=== PATIENT | female | born 1985 | race Caucasian/White ===

== ENCOUNTER 2016-11-08 10:49 | Emergency (ER) | payer OTHER ==
[~2016-11-08 10:49] MED LIST: Z.0.NO CURRENT MEDS
[2016-11-08 10:51] VITALS: BP 110/59; PULSE 94; RESP 20; TEMP 98.5; O2SAT 98
--- NOTE | 2016-11-08 11:04 | PD ---
Physical Exam Time Seen by Provider: 11:01 Narrative This is a 31 y/o female who was sent here by Wil Galvan to "confirm viability." She reports that her last menstrual period was 14 years ago but she believes that she is approximately 4 weeks . Vital signs reviewed. Seen at triage desk. Awaiting bed placement. Data Data Last Documented VS Vital Signs Date Time Temp Pulse Resp B/P Pulse Ox O2 Delivery O2 Flow Rate FiO2 11/08/16 10:51 98.5 94 20 110/59 98 Room Air [facility] Medical Record Reviewed: Yes Supervised Visit with AYESHA: Jarad Winn Nov 08, 2016 11:04
--- NOTE | 2016-11-08 11:13 | PD ---
HPI Chief Complaint: Medical Clearance Time Seen by Provider: 11:12 Travel History International Travel<30 days: No Contact w/Intl Traveler<30days: No Traveled to known affect area: No History of Present Illness HPI 31-year-old female presents to the emergency department sent by Theodore Galvan for " viability". Patient apparently had a positive test done at [facility]. Upon exam, she declines any symptoms. No chest pain or shortness breath. No abdominal pain or pelvic pain. No nausea, vomiting, diarrhea. She states that her last menstrual cycle was many years ago and does not know how far along she is. She states she has never been before. She states that she has had abnormal vaginal discharge that she was 14 years old. Patient is uncooperative and does not want to answer my questions. PFSH Past Medical History Diminished Hearing: No Psychiatric: No Schizophrenia: Yes Tetanus Vaccination: Unknown ?: LMP: stated" I didnot have periods for years" Menopausal: No : 0 Para: 0 Miscarriage: 0 : 0 Ectopic : No Ovarian Cysts: No Dilation and Curettage (D&C): No Tubal Ligation: Yes (REPORTS "LAP SURGERY" SO CAN'T GET ) Past Surgical History Gynecologic Surgery: Yes (leap surgery ) Hysterectomy: No Social History Alcohol Use: No Tobacco Use: Yes (a pack a day ) Substance Use: Yes (cocaine, weed) Allergies-Medications (Allergen,Severity, Reaction): Coded Allergies: No Known Allergies (Verified , 11/08/16) Reported Meds & Prescriptions Reported Meds & Active Scripts Active No Active Prescriptions or Reported Medications Review of Systems Except as stated in HPI: all other systems reviewed are Neg Physical Exam Narrative GENERAL: Well-nourished, well-developed female patient, afebrile. SKIN: Focused skin assessment warm/dry. HEAD: Normocephalic. EYES: No scleral icterus. No injection or drainage. NECK: Supple, trachea midline. No JVD or lymphadenopathy. CARDIOVASCULAR: Regular rate and rhythm without murmurs, gallops, or rubs. RESPIRATORY: Breath sounds equal bilaterally. No accessory muscle use. Lungs sounds are clear to auscultation. GASTROINTESTINAL: Abdomen soft and nondistended. Patient moans when I palpate the pelvic region. MUSCULOSKELETAL: No cyanosis, or edema. BACK: Nontender without obvious deformity. No CVA tenderness. Data Data Last Documented VS Vital Signs Date Time Temp Pulse Resp B/P Pulse Ox O2 Delivery O2 Flow Rate FiO2 11/08/16 11:07 20 11/08/16 10:51 98.5 94 110/59 98 Room Air Orders Ed Urine Pregnancytest Poc (11/08/16 11:06) Beta Hcg (Quant/Titer) (11/08/16 11:11) Complete Blood Count With Diff (11/08/16 11:11) Complete Rh (11/08/16 11:11) Urinalysis - C+S If Indicated (11/08/16 11:11) Comprehensive Metabolic Panel (11/08/16 11:11) Ed Poc Ultrasound (11/08/16 ) Gc And Chlamydia Pcr (11/08/16 12:02) Mandatory Outpatient Referral (11/08/16 12:35) Urine Culture (11/08/16 12:00) Labs Laboratory Tests Test 11/08/16 11/08/16 11:25 12:00 White Blood Count 6.5 TH/MM3 Red Blood Count 3.26 MIL/MM3 Hemoglobin 10.1 GM/DL Hematocrit 29.4 % Mean Corpuscular Volume 90.1 FL Mean Corpuscular Hemoglobin 31.0 PG Mean Corpuscular Hemoglobin 34.4 % Concent Red Cell Distribution Width 13.8 % Platelet Count 180 TH/MM3 Mean Platelet Volume 7.4 FL Neutrophils (%) (Auto) 80.1 % Lymphocytes (%) (Auto) 11.4 % Monocytes (%) (Auto) 7.1 % Eosinophils (%) (Auto) 1.2 % Basophils (%) (Auto) 0.2 % Neutrophils # (Auto) 5.2 TH/MM3 Lymphocytes # (Auto) 0.7 TH/MM3 Monocytes # (Auto) 0.5 TH/MM3 Eosinophils # (Auto) 0.1 TH/MM3 Basophils # (Auto) 0.0 TH/MM3 CBC Comment DIFF FINAL Differential Comment Sodium Level 137 MEQ/L Potassium Level 3.6 MEQ/L Chloride Level 107 MEQ/L Carbon Dioxide Level 22.7 MEQ/L Anion Gap 7 MEQ/L Blood Urea Nitrogen 9 MG/DL Creatinine 0.55 MG/DL Estimat Glomerular Filtration 131 ML/MIN Rate Random Glucose 75 MG/DL Calcium Level 8.4 MG/DL Total Bilirubin 0.4 MG/DL Aspartate Amino Transf 19 U/L (AST/SGOT) Alanine Aminotransferase 21 U/L (ALT/SGPT) Alkaline Phosphatase 62 U/L Total Protein 6.1 GM/DL Albumin 2.5 GM/DL Human Chorionic Gonadotropin, 42454 MIU/ML Quant Blood Type A POSITIVE Rho(D) Type POSITIVE Urine Color YELLOW Urine Turbidity HAZY Urine pH 6.5 Urine Specific [place] 1.017 Urine Protein TRACE mg/dL Urine Glucose (UA) NEG mg/dL Urine Ketones NEG mg/dL Urine Occult Blood NEG Urine Nitrite POS Urine Bilirubin NEG Urine Urobilinogen LESS THAN 2.0 MG/DL Urine Leukocyte Esterase LARGE Urine RBC LESS THAN 1 /hpf Urine WBC 23 /hpf Urine Squamous Epithelial 3 /hpf Cells Urine Amorphous Sediment FEW Urine Bacteria MANY /hpf Urine Mucus FEW /lpf Microscopic Urinalysis Comment CULTURE INDICATED MDM Medical Decision Making Medical Screen Exam Complete: Yes Emergency Medical Condition: Yes Medical Record Reviewed: Yes Differential Diagnosis Intrauterine versus ectopic versus UTI versus cervicitis Narrative Course 31-year-old female presents to the emergency department for viability from [facility]. She declines any complaints on after, but is tender to the pelvic region upon palpation. UA, urine test, CBC, CMP, beta hCG , complete Rh are ordered and pending. ED POC ultrasound is ordered and pending. Patient declined pelvic exam. I strongly encouraged her to do pelvic exam to rule out any cervical infections, but she continues to decline. Chlamydia/gonorrhea are added to urine, but patient declines treatment for chlamydia/gonorrhea. UA shows large leukocyte esterase, 23 WBC, many bacteria. UPT is positive. CBC shows hemoglobin 10.1, hematocrit 29.4. CMP shows no acute abnormality. Beta HCG is 37,971. Blood type is A+. US was completed by my attending physician, Dr. Antoine, which showed fetus that measured approximately 17 weeks , 1 day with heart rate 141 bpm. Patient will be discharged prescription for Macrobid for UTI. She is encouraged to follow up with an information systems operator. Mandatory referral was placed. Patient will be discharged with a prescription for vitamins. She verbalizes agreement and understanding. Patient is returning to [facility] with [facility] employee that is at bedside. The patient was discharged in stable condition with instructions, including return instructions and follow up instructions. Diagnosis Primary Impression: Intrauterine Additional Impression: Urinary tract infection during Qualified Code: O23.42 - Urinary tract infection during , second trimester Referrals: Shipping Supervisor call for appointment Patient Instructions: General Instructions, (ED), Urinary Tract Infection in (ED) Additional Instructions: Ultrasound done today in the emergency department shows that you are approximately 17 weeks, 1 day with heart rate of 141 bpm. Take Macrobid as directed until gone. Take vitamins daily. Follow-up with an information systems operator. Return to the emergency department for any acute worsening of symptoms. Med/Other Pt SpecificInfo: Prescription(s) given Scripts Vit-Iron Carbonyl ( Plus Iron 29-1 mg)1 Tab Tab1 Tab PO DAILY #30 TAB Ref 0 Prov:Jacey Llanos 11/08/16 Nitrofurantoin Monohydrate Macrocrystals (Macrobid)100 Mg [id number] Mg PO BID 7 Days Ref 0 Prov:Jacey Llanos 11/08/16 Disposition: 65 DISC TO [facility] Condition: Stable Jacey Llanos Nov 08, 2016 11:13
[2016-11-08 11:57] LABS: AUTOMATED NEUTROPHIL # 5.2 TH/MM3 (1.8-7.7); BASOPHIL % 0.2 % (0.0-2.0); EOSINOPHIL # 0.1 TH/MM3 (0-0.4); EOSINOPHIL % 1.2 % (0.0-4.0); HEMATOCRIT 29.4 % (35.0-46.0); HEMO FLAGS DIFF FINAL; LYMPH % 11.4 % (9.0-44.0); LYMPHOCYTE # 0.7 TH/MM3 (1.0-4.8); MEAN CELL VOLUME 90.1 FL (80.0-100.0); MEAN CORPUSCULAR HGB CONC 34.4 % (32.0-36.0); MONO % 7.1 % (0.0-8.0); NEUT % 80.1 % (16.0-70.0); PLATELET COUNT 180 TH/MM3 (150-450); RED BLOOD COUNT 3.26 MIL/MM3 (4.00-5.30); RED CELL DISTRIBUTION WIDTH 13.8 % (11.6-17.2); WHITE BLOOD COUNT 6.5 TH/MM3 (4.0-11.0)
[2016-11-08 12:18] LABS: ANION GAP 7 MEQ/L (5-15); AST (GOT) 19 U/L (15-37); BICARBONATE 22.7 MEQ/L (21.0-32.0); BLOOD UREA NITROGEN 9 MG/DL (7-18); CHLORIDE 107 MEQ/L (98-107); GLOMERULAR FILTRATION RATE 131 ML/MIN (>89); POTASSIUM 3.6 MEQ/L (3.5-5.1); SODIUM (NA) 137 MEQ/L (136-145)
[2016-11-08 12:23] LABS: ALKALINE PHOSPHATASE 62 U/L (45-117); ALT (GPT) 21 U/L (10-53); TOTAL BILIRUBIN ADULT 0.4 MG/DL (0.2-1.0)
--- NOTE | 2016-11-08 12:36 | PD ---
Physical Exam Date Seen by Provider: Nov 08, 2016 Time Seen by Provider: 12:33 Narrative 31-year-old female came to the emergency room with history of pelvic pain. She was recently found out to be . A repeat urine test was done in the emergency room which was positive as well. Patient is seen by the nurse practitioner and I'm supervising her. Patient is in a drug rehabilitation place. She does not know how far she could be. Per her she hasn't had her period in past 13 years. The nurse practitioner requested me to do a bedside ultrasound for the . Please refer to my procedure note. Patient has refused a pelvic exam at this point. She will be discharged home eventually once the results of back on vitamin prescription. I have asked Jacey to give her a mandatory referral with the OB international coordinator. Patient does not have an OB currently. Data Data Last Documented VS Vital Signs Date Time Temp Pulse Resp B/P Pulse Ox O2 Delivery O2 Flow Rate FiO2 11/08/16 11:07 20 11/08/16 10:51 98.5 94 110/59 98 Room Air Orders Ed Urine Pregnancytest Poc (11/08/16 11:06) Beta Hcg (Quant/Titer) (11/08/16 11:11) Complete Blood Count With Diff (11/08/16 11:11) Complete Rh (11/08/16 11:11) Urinalysis - C+S If Indicated (11/08/16 11:11) Comprehensive Metabolic Panel (11/08/16 11:11) Ed Poc Ultrasound (11/08/16 ) Gc And Chlamydia Pcr (11/08/16 12:02) Mandatory Outpatient Referral (11/08/16 12:35) Urine Culture (11/08/16 12:00) Labs Laboratory Tests Test 11/08/16 11/08/16 11:25 12:00 Sodium Level 137 MEQ/L Potassium Level 3.6 MEQ/L Chloride Level 107 MEQ/L Carbon Dioxide Level 22.7 MEQ/L Anion Gap 7 MEQ/L Blood Urea Nitrogen 9 MG/DL Creatinine 0.55 MG/DL Estimat Glomerular Filtration 131 ML/MIN Rate Random Glucose 75 MG/DL Calcium Level 8.4 MG/DL Total Bilirubin 0.4 MG/DL Aspartate Amino Transf 19 U/L (AST/SGOT) Alanine Aminotransferase 21 U/L (ALT/SGPT) Alkaline Phosphatase 62 U/L Total Protein 6.1 GM/DL Albumin 2.5 GM/DL Human Chorionic Gonadotropin, [address] MIU/ML Quant Blood Type A POSITIVE Rho(D) Type POSITIVE White Blood Count 6.5 TH/MM3 Red Blood Count 3.26 MIL/MM3 Hemoglobin 10.1 GM/DL Hematocrit 29.4 % Mean Corpuscular Volume 90.1 FL Mean Corpuscular Hemoglobin 31.0 PG Mean Corpuscular Hemoglobin 34.4 % Concent Red Cell Distribution Width 13.8 % Platelet Count 180 TH/MM3 Mean Platelet Volume 7.4 FL Neutrophils (%) (Auto) 80.1 % Lymphocytes (%) (Auto) 11.4 % Monocytes (%) (Auto) 7.1 % Eosinophils (%) (Auto) 1.2 % Basophils (%) (Auto) 0.2 % Neutrophils # (Auto) 5.2 TH/MM3 Lymphocytes # (Auto) 0.7 TH/MM3 Monocytes # (Auto) 0.5 TH/MM3 Eosinophils # (Auto) 0.1 TH/MM3 Basophils # (Auto) 0.0 TH/MM3 CBC Comment DIFF FINAL Differential Comment Chlamydia trachomatis DNA NOT DETECTED (PCR) Neisseria gonorrhoeae DNA NOT DETECTED (PCR) Urine Color YELLOW Urine Turbidity HAZY Urine pH 6.5 Urine Specific [place] 1.017 Urine Protein TRACE mg/dL Urine Glucose (UA) NEG mg/dL Urine Ketones NEG mg/dL Urine Occult Blood NEG Urine Nitrite POS Urine Bilirubin NEG Urine Urobilinogen LESS THAN 2.0 MG/DL Urine Leukocyte Esterase LARGE Urine RBC LESS THAN 1 /hpf Urine WBC 23 /hpf Urine Squamous Epithelial 3 /hpf Cells Urine Amorphous Sediment FEW Urine Bacteria MANY /hpf Urine Mucus FEW /lpf Microscopic Urinalysis Comment CULTURE INDICATED MDM Supervised Visit with AYESHA: Yes Procedures Procedure Narrative Emergency Department Pelvic ultrasound was performed with patient consent. The curvilinear probe was used in the transverse and sagittal views within the suprapubic region revealing single live intrauterine . heart rate was 141 bpm. See this measures 17 weeks and 1 day by biparietal diameter. Scripts Vit-Iron Carbonyl ( Plus Iron 29-1 mg)1 Tab Tab1 Tab PO DAILY #30 TAB Ref 0 Prov:Jacey Llanos 11/08/16 Nitrofurantoin Monohydrate Macrocrystals (Macrobid)100 Mg [id number] Mg PO BID 7 Days Ref 0 Prov:Jacey Llanos 11/08/16 Sherrie Antoine MD Nov 08, 2016 12:36
[2016-11-08 12:40] LABS: BACTERIA, URINE MANY /hpf; BLOOD, URINE NEG (NEG); COMMENT (UR) CULTURE INDICATED; CULTURE IF INDICATED CULTURE INDICATED; GLUCOSE,URINE NEG (NEG); KETONE, URINE NEG (NEG); MUCUS URINE FEW /lpf (OCC); PH, URINE 6.5 (5.0-8.5); SQUAMOUS EPITHELIAL CELL URINE 3 /hpf (0-5); URINE COLOR YELLOW (YELLW/STRAW)
[2016-11-08 12:41] LABS: NITRITE,URINE POS (NEG)
[2016-11-08 12:42] LABS: BETA HCG QUANT 37971 MIU/ML (0-5)
[2016-11-08] MEDS ORDERED: MACR100C2 PO (12:48)
[2016-11-08] MEDS ORDERED: PREN29TA PO (12:48)
[2016-11-08 15:15] LABS: CHLAMYDIA PCR NOT DETECTED (NOT DETECT); NEISSERIA PCR NOT DETECTED (NOT DETECT)
== END 2016-11-08 13:02 ==
LOC: NEPD 10:49
DX: O23.42 Unspecified infection of urinary tract in pregnancy, second trimester (principal); B96.20 Unspecified Escherichia coli [E. coli] as the cause of diseases classified elsewhere; Z3A.17 17 weeks gestation of pregnancy; F17.210 Nicotine dependence, cigarettes, uncomplicated
CPT/HCPCS: 80053; 81001; 84702; 84703; 85025; 86901; 87077; 87086; 87186; 87491; 87591; 99284

== ENCOUNTER 2017-02-03 04:46 | Emergency (ER) | payer MEDICARE, MEDICAID, OTHER ==
[~2017-02-03] VITALS: Ht 162.6 cm; Wt 60.0 kg
[~2017-02-03 04:46] MED LIST changes: +FERRTAB2 PO; +PREN29TA PO; -Z.0.NO CURRENT MEDS
[2017-02-03 05:04] VITALS: BP 105/62; PULSE 93; RESP 16; TEMP 97.9; O2SAT 100
[2017-02-03] MEDS ORDERED: OFFICE MEDICATION PO (05:15)
--- NOTE | 2017-02-03 05:42 | PD ---
HPI Chief Complaint: Psychiatric Symptoms Time Seen by Provider: 05:04 Travel History International Travel<30 days: No Contact w/Intl Traveler<30days: No Traveled to known affect area: No History of Present Illness HPI 31yo F with HIV with undetectable viral load and 28 or 29 weeks presents to the ED under Bashir Act because she no longer wants to be here. Pt states her boyfriend forgot her name and she was upset. Denies any fever, chest pain, sob, n/v, abdominal pain, vaginal bleeding or discharge. Pt feels movement and follows with OBGYN in [facility]. PFS Past Medical History Autoimmune Disease: Yes (HIV 12/30/2016) Diminished Hearing: No Psychiatric: No Schizophrenia: Yes Influenza Vaccination: Yes ?: LMP: APR 2016 Menopausal: No : 1 Para: 0 Miscarriage: 0 : 0 Ectopic : No Ovarian Cysts: No Dilation and Curettage (D&C): No Tubal Ligation: Yes (REPORTS "LAP SURGERY" SO CAN'T GET ) Past Surgical History Gynecologic Surgery: Yes (leap surgery ) Hysterectomy: No Social History Alcohol Use: No Tobacco Use: Yes (a pack a day ) Substance Use: No (FORMER cocaine, weed) Allergies-Medications (Allergen,Severity, Reaction): Coded Allergies: No Known Allergies (Verified , 01/30/17) Reported Meds & Prescriptions Reported Meds & Active Scripts Active Macrobid (Nitrofurantoin Monoh/Nitrofur Macro) 100 Mg Cap 100 Mg PO BID Plus Iron 29-1 mg ( Vit-Iron Carbonyl) 1 Tab Tab 1 Tab PO DAILY Reported Office Medication (Miscellaneous Medication) Misc 1 Tab PO DAILY Office Medication (Miscellaneous Medication) Misc 1 Tab PO DAILY Office Medication (Miscellaneous Medication) Misc 1 Tab PO DAILY Review of Systems Except as stated in HPI: all other systems reviewed are Neg Physical Exam Narrative GENERAL: 31yo F not in distress. SKIN: Focused skin assessment warm/dry. HEAD: Atraumatic. Normocephalic. EYES: Pupils equal and round. No scleral icterus. No injection or drainage. CARDIOVASCULAR: Regular rate and rhythm. No murmur appreciated. RESPIRATORY: No accessory muscle use. Clear to auscultation. Breath sounds equal bilaterally. GASTROINTESTINAL: Abdomen soft, gravid. No tenderness to palpation. MUSCULOSKELETAL: No obvious deformities. No clubbing. No cyanosis. No edema. NEUROLOGICAL: Awake and alert. No obvious cranial nerve deficits. Motor grossly within normal limits. Normal speech. Data Data Last Documented VS Vital Signs Date Time Temp Pulse Resp B/P (MAP) Pulse Ox O2 Delivery O2 Flow Rate FiO2 02/03/17 12:50 02/03/17 11:25 88 20 98 Room Air 02/03/17 05:04 97.9 Orders Orders Complete Blood Count With Diff (02/03/17 05:18) Comprehensive Metabolic Panel (02/03/17 05:18) Psych Screen (02/03/17 05:18) Drug Screen, Random Urine (02/03/17 05:18) Ed Poc Ultrasound (02/03/17 ) Ed Poc Ultrasound (02/03/17 ) Tylenol (Acetaminophen) (02/03/17 07:48) Salicylates (Aspirin) (02/03/17 07:48) Urinalysis - C+S If Indicated (02/03/17 07:48) Urine Culture (02/03/17 05:20) Ed Discharge Order (02/03/17 13:09) Labs Laboratory Tests Test 02/03/17 05:20 White Blood Count 10.0 TH/MM3 Red Blood Count 3.26 MIL/MM3 Hemoglobin 10.0 GM/DL Hematocrit 29.7 % Mean Corpuscular Volume 91.0 FL Mean Corpuscular Hemoglobin 30.6 PG Mean Corpuscular Hemoglobin Concent 33.6 % Red Cell Distribution Width 13.4 % Platelet Count 211 TH/MM3 Mean Platelet Volume 7.7 FL Neutrophils (%) (Auto) 74.5 % Lymphocytes (%) (Auto) 16.0 % Monocytes (%) (Auto) 7.1 % Eosinophils (%) (Auto) 2.0 % Basophils (%) (Auto) 0.4 % Neutrophils # (Auto) 7.4 TH/MM3 Lymphocytes # (Auto) 1.6 TH/MM3 Monocytes # (Auto) 0.7 TH/MM3 Eosinophils # (Auto) 0.2 TH/MM3 Basophils # (Auto) 0.0 TH/MM3 CBC Comment DIFF FINAL Differential Comment Urine Color YELLOW Urine Turbidity HAZY Urine pH 6.5 Urine Specific [place] 1.021 Urine Protein TRACE mg/dL Urine Glucose (UA) NEG mg/dL Urine Ketones NEG mg/dL Urine Occult Blood NEG Urine Nitrite NEG Urine Bilirubin NEG Urine Urobilinogen LESS THAN 2.0 MG/DL Urine Leukocyte Esterase SMALL Urine RBC 2 /hpf Urine WBC 11 /hpf Urine Squamous Epithelial Cells 6 /hpf Urine Bacteria OCC /hpf Urine Mucus FEW /lpf Microscopic Urinalysis Comment CULTURE INDICATED Blood Urea Nitrogen 10 MG/DL Creatinine 0.61 MG/DL Random Glucose 77 MG/DL Total Protein 7.2 GM/DL Albumin 2.7 GM/DL Calcium Level 8.8 MG/DL Alkaline Phosphatase 93 U/L Aspartate Amino Transf (AST/SGOT) 25 U/L Alanine Aminotransferase (ALT/SGPT) 30 U/L Total Bilirubin 1.1 MG/DL Sodium Level 137 MEQ/L Potassium Level 3.7 MEQ/L Chloride Level 103 MEQ/L Carbon Dioxide Level 23.2 MEQ/L Anion Gap 11 MEQ/L Estimat Glomerular Filtration Rate 116 ML/MIN Salicylates Level LESS THAN 1.7 MG/DL Urine Opiates Screen NEG Acetaminophen Level LESS THAN 2.0 MCG/ML Urine Barbiturates Screen NEG Urine Amphetamines Screen NEG Urine Benzodiazepines Screen NEG Urine Cocaine Screen NEG Urine Cannabinoids Screen NEG MDM Medical Decision Making Medical Screen Exam Complete: Yes Emergency Medical Condition: Yes Differential Diagnosis Suicidal ideation vs. bipolar disorder Narrative Course 31yo F with suicidal ideation under BA. Labs reviewed, no leukocytosis. H/H low at 10/29.7 which is baseline. CMP unremarkable. Utox negative. Urinalysis pending and sign out to next team to follow up. Procedures Procedure Narrative Emergency Department Pelvic ultrasound was performed with patient consent. The curvilinear probe was used in the transverse and sagittal views within the suprapubic region revealing single intrauterine . heart rate was 150bpm. Diagnosis Primary Impression: Suicidal ideation Scripts Nitrofurantoin Monohydrate Macrocrystals (Macrobid) 100 Mg Cap 100 MG PO BID for Infection, #10 CAP 0 Refills Prov: Ken Triana MD 02/03/17 Heather Bonilla DO Feb 03, 2017 05:41
[2017-02-03 05:50] LABS: AUTOMATED NEUTROPHIL # 7.4 TH/MM3 (1.8-7.7); BASOPHIL % 0.4 % (0.0-2.0); EOSINOPHIL # 0.2 TH/MM3 (0-0.4); HEMATOCRIT 29.7 % (35.0-46.0); HEMO FLAGS DIFF FINAL; LYMPHOCYTE # 1.6 TH/MM3 (1.0-4.8); MEAN CORPUSCULAR HEMOGLOBIN 30.6 PG (27.0-34.0); MEAN CORPUSCULAR HGB CONC 33.6 % (32.0-36.0); MONO % 7.1 % (0.0-8.0); NEUT % 74.5 % (16.0-70.0); PLATELET COUNT 211 TH/MM3 (150-450); RED BLOOD COUNT 3.26 MIL/MM3 (4.00-5.30); RED CELL DISTRIBUTION WIDTH 13.4 % (11.6-17.2)
[2017-02-03 06:04] LABS: ANION GAP 11 MEQ/L (5-15); AST (GOT) 25 U/L (15-37); BICARBONATE 23.2 MEQ/L (21.0-32.0); BLOOD UREA NITROGEN 10 MG/DL (7-18); CHLORIDE 103 MEQ/L (98-107); GLOMERULAR FILTRATION RATE 116 ML/MIN (>89); POTASSIUM 3.7 MEQ/L (3.5-5.1); SODIUM (NA) 137 MEQ/L (136-145)
[2017-02-03 06:08] LABS: ALKALINE PHOSPHATASE 93 U/L (45-117); ALT (GPT) 30 U/L (10-53); TOTAL BILIRUBIN ADULT 1.1 MG/DL (0.2-1.0)
--- NOTE | 2017-02-03 10:54 | PD ---
Physical Exam Date Seen by Provider: Feb 03, 2017 Time Seen by Provider: 10:55 Narrative This is a 31-year-old female who was seen previously by Dr. Bonilla under Bashir act. She was placed under Bashir act because she made a statement that she didn' t want to be around anymore because her boyfriend didn't recognize her name. She reports her boyfriend is in an inpatient state psychiatric unit. Data Data Last Documented VS Vital Signs Date Time Temp Pulse Resp B/P (MAP) Pulse Ox O2 Delivery O2 Flow Rate FiO2 02/03/17 11:25 88 20 106/56 (73) 98 Room Air 02/03/17 05:04 97.9 Orders Orders Complete Blood Count With Diff (02/03/17 05:18) Comprehensive Metabolic Panel (02/03/17 05:18) Psych Screen (02/03/17 05:18) Drug Screen, Random Urine (02/03/17 05:18) Ed Poc Ultrasound (02/03/17 ) Ed Poc Ultrasound (02/03/17 ) Tylenol (Acetaminophen) (02/03/17 07:48) Salicylates (Aspirin) (02/03/17 07:48) Urinalysis - C+S If Indicated (02/03/17 07:48) Urine Culture (02/03/17 05:20) Labs Laboratory Tests Test 02/03/17 05:20 White Blood Count 10.0 TH/MM3 Red Blood Count 3.26 MIL/MM3 Hemoglobin 10.0 GM/DL Hematocrit 29.7 % Mean Corpuscular Volume 91.0 FL Mean Corpuscular Hemoglobin 30.6 PG Mean Corpuscular Hemoglobin Concent 33.6 % Red Cell Distribution Width 13.4 % Platelet Count 211 TH/MM3 Mean Platelet Volume 7.7 FL Neutrophils (%) (Auto) 74.5 % Lymphocytes (%) (Auto) 16.0 % Monocytes (%) (Auto) 7.1 % Eosinophils (%) (Auto) 2.0 % Basophils (%) (Auto) 0.4 % Neutrophils # (Auto) 7.4 TH/MM3 Lymphocytes # (Auto) 1.6 TH/MM3 Monocytes # (Auto) 0.7 TH/MM3 Eosinophils # (Auto) 0.2 TH/MM3 Basophils # (Auto) 0.0 TH/MM3 CBC Comment DIFF FINAL Differential Comment Urine Color YELLOW Urine Turbidity HAZY Urine pH 6.5 Urine Specific [place] 1.021 Urine Protein TRACE mg/dL Urine Glucose (UA) NEG mg/dL Urine Ketones NEG mg/dL Urine Occult Blood NEG Urine Nitrite NEG Urine Bilirubin NEG Urine Urobilinogen LESS THAN 2.0 MG/DL Urine Leukocyte Esterase SMALL Urine RBC 2 /hpf Urine WBC 11 /hpf Urine Squamous Epithelial Cells 6 /hpf Urine Bacteria OCC /hpf Urine Mucus FEW /lpf Microscopic Urinalysis Comment CULTURE INDICATED Blood Urea Nitrogen 10 MG/DL Creatinine 0.61 MG/DL Random Glucose 77 MG/DL Total Protein 7.2 GM/DL Albumin 2.7 GM/DL Calcium Level 8.8 MG/DL Alkaline Phosphatase 93 U/L Aspartate Amino Transf (AST/SGOT) 25 U/L Alanine Aminotransferase (ALT/SGPT) 30 U/L Total Bilirubin 1.1 MG/DL Sodium Level 137 MEQ/L Potassium Level 3.7 MEQ/L Chloride Level 103 MEQ/L Carbon Dioxide Level 23.2 MEQ/L Anion Gap 11 MEQ/L Estimat Glomerular Filtration Rate 116 ML/MIN Salicylates Level LESS THAN 1.7 MG/DL Urine Opiates Screen NEG Acetaminophen Level LESS THAN 2.0 MCG/ML Urine Barbiturates Screen NEG Urine Amphetamines Screen NEG Urine Benzodiazepines Screen NEG Urine Cocaine Screen NEG Urine Cannabinoids Screen NEG MDM Medical Record Reviewed: Yes Supervised Visit with AYESHA: No Narrative Course 31-year-old female who is with a history of HIV, presented with complaints of no longer wanting to be here after she had an issue with her boyfriend. She reports worsening did not remember her name. She's been seen and evaluated by Dr. Gambino, psychiatry, who has lifted her Bashir act. She' ll be discharged. She did have a UTI which we have written a prescription for Macrobid for. Diagnosis Primary Impression: acute life stressor. Additional Impressions: Intrauterine medically clear Urinary tract infection during Scripts Nitrofurantoin Monohydrate Macrocrystals (Macrobid) 100 Mg Cap 100 MG PO BID for Infection, #10 CAP 0 Refills Prov: Ken Triana MD 02/03/17 Disposition: 01 DISCHARGE HOME Condition: Stable Ken Triana MD Feb 03, 2017 10:54
[2017-02-03 11:25] VITALS: BP 106/56; PULSE 88; RESP 20; O2SAT 98
[2017-02-03 11:34] LABS: BACTERIA, URINE OCC /hpf; BLOOD, URINE NEG (NEG); COMMENT (UR) CULTURE INDICATED; CULTURE IF INDICATED CULTURE INDICATED; GLUCOSE,URINE NEG (NEG); KETONE, URINE NEG (NEG); MUCUS URINE FEW /lpf (OCC); NITRITE,URINE NEG (NEG); PH, URINE 6.5 (5.0-8.5); SQUAMOUS EPITHELIAL CELL URINE 6 /hpf (0-5); URINE COLOR YELLOW (YELLW/STRAW)
[2017-02-03] MEDS ORDERED: MACR100C2 PO (11:54)
--- NOTE | 2017-02-03 16:23 | PD.PSY.CON ---
Provisional Diagnosis Admission Date [place] I. Schizophrenia [place] II. Deferred [place] III. Hypertension, 7 months [place] IV. History of drug use [place] V. 55 History of Present Illness Service Psychiatry Consult Requested By Reason for Consult Psychosis Primary Care Physician No Primary Care Physician HPI The patient is a 31 year old woman, Domiciled in [place], single , unemployed, on SSI, with psychiatric history of schizophrenia, multiple psychiatric hospitalizations, no previous suicidal attempts, she hasn't establish outpatient care in her residential facility, but she is not currently in psychotropics due to her , with medical history of HIV with undetectable viral load, hypertension and 28 or 29 weeks presents to the ED under Bashir Act because she no longer wants to be here and expressed suicidal ideation. On somatic evaluation today patient is calm, cooperative and pleasant. She states that she did not expressed suicidal ideation. His that she doesn't want to , she wants to live and take care of her baby. Patient says that yesterday she was very upset with her boyfriend "because he forgot my name, and he keeps forgetting who am I". Patient says that her boyfriend is a schizophrenic and is hospitalized at this moment. For the reason , she says that she has been stressed. However, patient reports good mood, she denies depressive symptoms, she denies anhedonia, she denies hopelessness, she denies helplessness, she denies suicidal and homicidal ideation, she denies visual and auditory hallucinations. Patient denies paranoia, delusions, ideas of reference, thought controlling. Patient is logical, coherent and relevant. Oriented 3, no attention deficit, no gross cognitive impairment present. She denies the use of drugs and alcohol. Collateral information from and nurse in her residential facility was contacted,[phone], Nela Mcpherson LPN. I also had a conversation with her medical doctor, Dr. jose. They stated the patient has been is baseline without medications during her . Patient has not been aggressive, agitated or floridly psychotic. However yesterday she was a statement that her boyfriend , which after redirection she admitted wasn't true, but then she was consistently stating that her boyfriend forgot her name and at some point she says she wanted to . They became concerned and Bashir act the patient. They understand that the patient is a schizophrenic and she may have an intercostal with the reality, but they became scared when she voiced. They are okay with taking the patient back once psychiatrically cleared and monitoring the patient closely. They say that she sees an outpatient psychiatrist weekly. Review of Systems Constitutional: DENIES: Diaphoretic episodes, Fatigue, Fever, Weight gain, Weight loss, Chills, Dizziness, Change in appetite, Night Sweats Endocrine: DENIES: Abnorml menstrual pattern, Heat/cold intolerance, Polydipsia , Polyuria, Polyphagia Eyes: DENIES: Blurred vision, Diplopia, Eye inflammation, Eye pain, Vision loss , Photosensitivity, Double Vision Ears, nose, mouth, throat: DENIES: Tinnitus, Hearing loss, Vertigo, Nasal discharge, Oral lesions, Throat pain, Hoarseness, Ear Pain, Running Nose, Epistaxis, Sinus Pain, Toothache, Odynophagia Respiratory: DENIES: Apneas, Cough, Snoring, Wheezing, Hemoptysis, Sputum production, Shortness of breath Cardiovascular: DENIES: Chest pain, Palpitations, Syncope, Dyspnea on Exertion , PND, Lower Extremity Edema, Orthopnea, Claudication Gastrointestinal: DENIES: Abdominal pain, Black stools, Bloody stools, Constipation, Diarrhea, Nausea, Vomiting, Difficulty Swallowing, Anorexia Genitourinary: DENIES: Abnormal vaginal bleeding, Dysmenorrhea, Dyspareunia, Sexual dysfunction, Urinary frequency, Urinary incontinence, Urgency, Hematuria , Dysuria, Nocturia, Vaginal discharge Musculoskeletal: DENIES: Joint pain, Muscle aches, Stiffness, Joint Swelling, Back pain, Neck pain Integumentary: DENIES: Abnormal pigmentation, Pruritus, Rash, Nail changes, Breast masses, Breast skin changes, Nipple discharge Hematologic/lymphatic: DENIES: Bruising, Lymphadenopathy Immunologic/allergic: DENIES: Eczema, Urticaria Neurologic: DENIES: Abnormal gait, Headache, Localized weakness, Paresthesias, Seizures, Speech Problems, Tremor, Poor Balance Psychiatric: DENIES: Anxiety, Confusion, Mood changes, Depression, Hallucinations, Agitation, Suicidal Ideation, Homicidal Ideation, Delusions Past Family Social History Coded Allergies: No Known Allergies (Verified , 01/30/17) Active Scripts Nitrofurantoin Monohydrate Macrocrystals (Macrobid) 100 Mg Cap, 100 MG PO BID for Infection, #10 CAP 0 Refills Prov:Ken Triana MD 02/03/17 Vit-Iron Carbonyl ( Plus Iron 29-1 mg) 1 Tab Tab, 1 TAB PO DAILY for Nutritional Supplement, #30 TAB 0 Refills Prov:Jacey Llanos LUIS ALBERTO 11/08/16 Reported Medications Miscellaneous (Office Medication) Misc, 1 TAB PO DAILY for Hives 02/03/17 Miscellaneous (Office Medication) Misc, 1 TAB PO DAILY for Hives 02/03/17 Miscellaneous (Office Medication) Misc, 1 TAB PO DAILY for Hives 02/03/17 Discontinued Scripts Multi-Vit/Iron-Folic [id number] C (Ferralet) 90-1-0.012-120 mg Tab, 1 CAPLET PO DAILY for 30 Days, #30 CAPLET 3 Refills Prov:Gilda Sheldon 01/21/17 Family Psych History She denies family psychiatric history Social History Patient was born and raised in [place], she lives in [place] in a residential facility, she is single, she has a boyfriend, unemployed, on SSI her highest level of education is high school Patient's Strengths (min. 2) Outpatient psychiatric care Physical Exam Vital Signs Vital Signs Date Time Temp Pulse Resp B/P (MAP) Pulse Ox O2 Delivery O2 Flow Rate FiO2 02/03/17 12:50 02/03/17 11:25 88 20 98 Room Air 02/03/17 05:04 97.9 Lab Results Test 02/03/17 05:20 White Blood Count 10.0 TH/MM3 Red Blood Count 3.26 MIL/MM3 Hemoglobin 10.0 GM/DL Hematocrit 29.7 % Mean Corpuscular Volume 91.0 FL Mean Corpuscular Hemoglobin 30.6 PG Mean Corpuscular Hemoglobin Concent 33.6 % Red Cell Distribution Width 13.4 % Platelet Count 211 TH/MM3 Mean Platelet Volume 7.7 FL Neutrophils (%) (Auto) 74.5 % Lymphocytes (%) (Auto) 16.0 % Monocytes (%) (Auto) 7.1 % Eosinophils (%) (Auto) 2.0 % Basophils (%) (Auto) 0.4 % Neutrophils # (Auto) 7.4 TH/MM3 Lymphocytes # (Auto) 1.6 TH/MM3 Monocytes # (Auto) 0.7 TH/MM3 Eosinophils # (Auto) 0.2 TH/MM3 Basophils # (Auto) 0.0 TH/MM3 CBC Comment DIFF FINAL Differential Comment Urine Color YELLOW Urine Turbidity HAZY Urine pH 6.5 Urine Specific [place] 1.021 Urine Protein TRACE mg/dL Urine Glucose (UA) NEG mg/dL Urine Ketones NEG mg/dL Urine Occult Blood NEG Urine Nitrite NEG Urine Bilirubin NEG Urine Urobilinogen LESS THAN 2.0 MG/DL Urine Leukocyte Esterase SMALL Urine RBC 2 /hpf Urine WBC 11 /hpf Urine Squamous Epithelial Cells 6 /hpf Urine Bacteria OCC /hpf Urine Mucus FEW /lpf Microscopic Urinalysis Comment CULTURE INDICATED Blood Urea Nitrogen 10 MG/DL Creatinine 0.61 MG/DL Random Glucose 77 MG/DL Total Protein 7.2 GM/DL Albumin 2.7 GM/DL Calcium Level 8.8 MG/DL Alkaline Phosphatase 93 U/L Aspartate Amino Transf (AST/SGOT) 25 U/L Alanine Aminotransferase (ALT/SGPT) 30 U/L Total Bilirubin 1.1 MG/DL Sodium Level 137 MEQ/L Potassium Level 3.7 MEQ/L Chloride Level 103 MEQ/L Carbon Dioxide Level 23.2 MEQ/L Anion Gap 11 MEQ/L Estimat Glomerular Filtration Rate 116 ML/MIN Salicylates Level LESS THAN 1.7 MG/DL Urine Opiates Screen NEG Acetaminophen Level LESS THAN 2.0 MCG/ML Urine Barbiturates Screen NEG Urine Amphetamines Screen NEG Urine Benzodiazepines Screen NEG Urine Cocaine Screen NEG Urine Cannabinoids Screen NEG Date/Time Source Procedure Growth Status 02/03/17 05:20 Urine Clean Catch Urine Culture Pending Received Mental Status Examination Appearance: Appropriate Consciousness: Alert Orientation: x4 Motor Activity: Normal gait Speech: Unremarkable Language: Adequate Fund of Knowledge: Adequate Attention and Concentration: Adequate Memory: Unremarkable Mood: Appropriate Affect: Appropriate Thought Process & Associations: Intact Thought Content: Appropriate Hallucination Type: None Delusion Type: Bizarre Suicidal Ideation: No Suicidal Plan: No Suicidal Intention: No Homicidal Ideation: No Homicidal Plan: No Homicidal Intention: No Insight: Adequate Judgment: Adequate Assessment & Plan Problem List: (1) Schizophrenia ICD Codes: F20.9 - Schizophrenia, unspecified Assessment & Plan: On psychiatric evaluation today the patient is with was seems to be delusional ideas of her boyfriend forgetting her name. However, the patient does not present any internal preoccupation, no paranoia, no delusions of reference, no tangential or disorganized patient, denies suicidal and homicidal ideation, denies visual and auditory hallucinations. Patient is logical, coherent and relevant. Oriented 3. Delusional idea in the patient is at this moment does not seem to be dangerous or disruptive for the patient or the community. I do not feel that the patient meet criteria for psychiatric admission. The benefits of psychiatric treatment at this moment do not outweigh the risk of the potential side effects of psychotropics in her . I will suggest she is monitor closely in her residential facility and by her outpatient psychiatrist and if she continued to decompensate she can be started in psychotropics. Extensive support, motivation and psychoeducation provided. Bashir act will be lifted. Assessment & Plan Estimated LOS: Christo Oakley MD Feb 03, 2017 16:23
== END 2017-02-03 13:21 | disposition home or self-care (01) ==
LOC: NEPE 04:46
DX: O99.343 Other mental disorders complicating pregnancy, third trimester (principal); F20.9 Schizophrenia, unspecified; O99.333 Smoking (tobacco) complicating pregnancy, third trimester; F17.200 Nicotine dependence, unspecified, uncomplicated; O98.713 Human immunodeficiency virus [HIV] disease complicating pregnancy, third trimester; O23.43 Unspecified infection of urinary tract in pregnancy, third trimester; B96.89 Other specified bacterial agents as the cause of diseases classified elsewhere; Z3A.29 29 weeks gestation of pregnancy; Z21 Asymptomatic human immunodeficiency virus [HIV] infection status; Z79.899 Other long term (current) drug therapy
CPT/HCPCS: 80053; 80307; 81001; 84703; 85025; 87086; 99284

== ENCOUNTER → 2017-02-06 | Outpatient (CLI) | payer MEDICARE, MEDICAID ==
[~2017-02-06] MED LIST changes: +MACR100C2 PO; +OFFICE MEDICATION PO
== END ==
LOC: HPND 09:22
PROVIDERS: ATTEND Obstetrics & Gynecology
DX: O99.323 Drug use complicating pregnancy, third trimester (principal); O98.313 Other infections with a predominantly sexual mode of transmission complicating pregnancy, third trimester; O98.513 Other viral diseases complicating pregnancy, third trimester; Z3A.29 29 weeks gestation of pregnancy
CPT/HCPCS: 76811; 76825; 76827; 93325

== ENCOUNTER → 2017-03-08 | Outpatient (CLI) | payer MEDICARE, MEDICAID ==
[~2017-03-08] MED LIST changes: -MACR100C2 PO; +TERC0.8C VAGINAL
== END ==
LOC: HPND 10:40
PROVIDERS: ATTEND Obstetrics & Gynecology
DX: O98.513 Other viral diseases complicating pregnancy, third trimester (principal); O98.313 Other infections with a predominantly sexual mode of transmission complicating pregnancy, third trimester; O99.323 Drug use complicating pregnancy, third trimester; O99.343 Other mental disorders complicating pregnancy, third trimester
CPT/HCPCS: 76816

== ENCOUNTER 2017-04-02 18:08 | Inpatient (IN) | payer OTHER, MEDICARE ==
[~2017-04-02] VITALS: Ht 154.9 cm; Wt 55.3 kg
[~2017-04-02 18:08] MED LIST changes: -TERC0.8C VAGINAL
[2017-04-02 18:36] VITALS: BP 151/72; PULSE 100; RESP 20; O2SAT 98
[2017-04-02 19:14] VITALS: TEMP 98.3
[2017-04-02] MEDS ORDERED: ABIL15TA3 PO (19:49)
[2017-04-02 20:30] LABS: AUTOMATED NEUTROPHIL # 5.1 TH/MM3 (1.8-7.7); BASOPHIL % 0.4 % (0.0-2.0); EOSINOPHIL # 0.2 TH/MM3 (0-0.4); EOSINOPHIL % 2.8 % (0.0-4.0); HEMATOCRIT 35.3 % (35.0-46.0); HEMO FLAGS DIFF FINAL; LYMPH % 19.9 % (9.0-44.0); LYMPHOCYTE # 1.5 TH/MM3 (1.0-4.8); MEAN CELL VOLUME 89.2 FL (80.0-100.0); MEAN CORPUSCULAR HEMOGLOBIN 29.5 PG (27.0-34.0); MONO % 7.8 % (0.0-8.0); NEUT % 69.1 % (16.0-70.0); PLATELET COUNT 387 TH/MM3 (150-450); RED BLOOD COUNT 3.96 MIL/MM3 (4.00-5.30); RED CELL DISTRIBUTION WIDTH 12.7 % (11.6-17.2); WHITE BLOOD COUNT 7.3 TH/MM3 (4.0-11.0)
[2017-04-02] MEDS ORDERED: ARIP1TAB12 PO (20:41)
[2017-04-02] MEDS ORDERED: EMTR1TAB6 PO (20:41)
[2017-04-02] MEDS ORDERED: RALT400 PO (20:41)
[2017-04-02 20:51] LABS: ANION GAP 7 MEQ/L (5-15); AST (GOT) 24 U/L (15-37); BICARBONATE 27.9 MEQ/L (21.0-32.0); BLOOD UREA NITROGEN 12 MG/DL (7-18); CHLORIDE 103 MEQ/L (98-107); GLOMERULAR FILTRATION RATE 81 ML/MIN (>89); SODIUM (NA) 138 MEQ/L (136-145)
[2017-04-02 20:55] LABS: ALKALINE PHOSPHATASE 123 U/L (45-117); ALT (GPT) 34 U/L (10-53); TOTAL BILIRUBIN ADULT 0.3 MG/DL (0.2-1.0)
[2017-04-02 21:02] LABS: ALCOHOL LESS THAN 3 MG/DL (0-5)
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
[2017-04-02 23:21] VITALS: BP 124/69; PULSE 94; RESP 17; TEMP 97.7; O2SAT 98
[2017-04-02] MEDS ORDERED: diphenhydrAMINE HCL 50 MG CAP - HS PRN PO (23:45)
[2017-04-02] MEDS ORDERED: ALUMINUM/MAGNESIUM/SIMETH 30 ML CUP PO PRN (23:45)
[2017-04-02] MEDS ORDERED: MAGNESIUM HYDROXIDE SUSP 30 ML CUP PO PRN (23:45)
[2017-04-02] MEDS ORDERED: ACETAMINOPHEN 325 MG TAB PO PRN (23:45)
[2017-04-02] MEDS ORDERED: diphenhydrAMINE HCL 50 MG/ML VIAL - HS PRN IM (23:45)
[2017-04-02] MEDS ORDERED: hydrOXYzine HCL 50 MG TAB PO PRN (23:45)
[2017-04-03 06:13] VITALS: BP 110/56; PULSE 114; RESP 17; TEMP 98.4; O2SAT 97
[2017-04-03 08:21] LABS: HDL CHOLESTEROL 111.4 MG/DL (40.0-60.0); LDL CHOLESTEROL 103 MG/DL (0-99)
[2017-04-03] MEDS ORDERED: RALTEGRAVIR 400 MG TAB PO SCH (09:00)
[2017-04-03] MEDS ORDERED: diphenhydrAMINE HCL 50 MG CAP PO PRN ×2 (14:30→21:00)
[2017-04-03] MEDS ORDERED: hydrOXYzine HCL 50 MG TAB PO PRN (14:30)
--- NOTE | 2017-04-03 14:46 | HHI.HP ---
Provisional Diagnosis Admission Date Apr 02, 2017 at 22:13 Clayton I. Schizoaffective disorder bipolar type F 25.0 Certification of Person's Competence To Provide Express and Informed Consent I have personally examined Daiana Valderrama , a person being served at [facility] on, Apr 03, 2017 14:29. Express and informed consent means consent voluntarily given in writing, by a competent person, after sufficient explanation and disclosure of the subject matter involved to enable the person to make a knowing and willful decision without any element of force, fraud, deceit, duress, or other form of constraint or coercion. This person is 18 years of age or older, is not now known to be incompetent to consent to treatment with a guardian advocate, and does not have a health care surrogate or proxy currently making medical treatment decisions. I have found this person to be one of the following: [] Competent to provide express and informed consent, as defined above, for voluntary admission to this facility and is competent to provide express and informed consent for treatment. He/she has the consistent capacity to make well reasoned, willful, and knowing decisions concerning his or her medical or mental health treatment. The person fully and consistently understands the purpose of the admission for examination/placement and is fully capable of personally exercising all rights assured [place] Incompetent to provide express and informed consent to voluntary admission, and this is incompetent to provide express and informed consent to treatment. The person must be transferred to involuntary status and a petition for a guardian advocate filed with the Circuit Court. [xxx] Refusing to provide express and informed consent to voluntary admission but is competent to provide express and informed consent for treatment. The person must be discharged or transferred to involuntary status. Form shall be completed within 24 hours of a person's arrival at the receiving facility and filed in the clinical record of each person: 1. Admitted on a voluntary basis 2. Permitted to provide express and informed consent to his/her own treatment 3. Allowed to transfer from involuntary to voluntary status 4. Prior to permitting a person to consent to his or her own treatment after having been previously found incompetent to consent to treatment. History of Present Illness Capacity: Lacks Capacity (patient lacks capacity to sign for admission, patient has capacity to sign for medication) Psych Chief Complaint: increase auditory or visual hallucinations of threatening nature HPI Ration is a 32-year-old white female comes here under Bashir act signed by Erica illegible signature dated 04/02/17 the document reviewed stating Daiana Valderrama presented to the [facility] of [facility] asked [facility] travon and stating "he is here to kill me" upon further investigation client reported that she [facility] and that he was here to "kill her". Daiana stated "he kill me before and stamp my eyes out with a group back" Daiana presents with active visual and auditory hallucinations and delusions and presents as a dangerous to herself and others due to symptoms of psychosis patient was seen screened in the emergency department urine toxicology negative blood alcohol level negative. It appears patient did deliver a baby about 2 weeks ago that is still at [facility] but is in the custody of patient's mother. Review of our EMR shows multiple prior psychiatric visits past diagnosis of schizophrenia. Patient is court ordered to project [facility] due to her addictive behaviors. It appears patient was recently restarted on her Abilify. At the present time patient sitting in her room on [address] present throughout session. He should alert disorganized intense thin slender white female somewhat disheveled in appearance. She is minimizing the behaviors that occurred leading to this hospitalization. Says she just got confused over a person she saw in the community. She denies having a mental illness said that somebody at [facility] sensors cured of her mental illness. Patient denies voices or visions at the present time. At times she appears to be distracted as of responding to internal stimuli. She does denies suicidality at this time. She does deny any physical or sexual abuse. States she has been clean with negative urine toxicology his for over 100+ days. At this time patient does meet criteria for involuntary psychiatric hospitalization of the Bashir act I will do first opinion request second opinion. I feel she has capacity sign for medication. She has been on Abilify 10 mg at at bedtime I will add 5 mg in the morning to that regimen will refrain from any benzodiazepines or opiates will offer Atarax for anxiety and Benadryl to help with sleep. Will attempt to reach patient's mother to get further information concerning the addition woman. It appears they're holding a bed for her [facility] once she is stabilized Review of Systems Constitutional: DENIES: Diaphoretic episodes, Fatigue, Fever, Weight gain, Weight loss, Chills, Dizziness, Change in appetite, Night Sweats Endocrine: DENIES: Abnorml menstrual pattern, Heat/cold intolerance, Polydipsia , Polyuria, Polyphagia Eyes: DENIES: Blurred vision, Diplopia, Eye inflammation, Eye pain, Vision loss , Photosensitivity, Double Vision Ears, nose, mouth, throat: DENIES: Tinnitus, Hearing loss, Vertigo, Nasal discharge, Oral lesions, Throat pain, Hoarseness, Ear Pain, Running Nose, Epistaxis, Sinus Pain, Toothache, Odynophagia Respiratory: DENIES: Apneas, Cough, Snoring, Wheezing, Hemoptysis, Sputum production, Shortness of breath Cardiovascular: DENIES: Chest pain, Palpitations, Syncope, Dyspnea on Exertion , PND, Lower Extremity Edema, Orthopnea, Claudication Gastrointestinal: DENIES: Abdominal pain, Black stools, Bloody stools, Constipation, Diarrhea, Nausea, Vomiting, Difficulty Swallowing, Anorexia Genitourinary: DENIES: Abnormal vaginal bleeding, Dysmenorrhea, Dyspareunia, Sexual dysfunction, Urinary frequency, Urinary incontinence, Urgency, Hematuria , Dysuria, Nocturia, Vaginal discharge Musculoskeletal: DENIES: Joint pain, Muscle aches, Stiffness, Joint Swelling, Back pain, Neck pain Integumentary: DENIES: Abnormal pigmentation, Pruritus, Rash, Nail changes, Breast masses, Breast skin changes, Nipple discharge Hematologic/lymphatic: DENIES: Bruising, Lymphadenopathy Immunologic/allergic: DENIES: Eczema, Urticaria Neurologic: DENIES: Abnormal gait, Headache, Localized weakness, Paresthesias, Seizures, Speech Problems, Tremor, Poor Balance Psychiatric: COMPLAINS OF: Hallucinations, Delusions Past Psych History Psychological trauma history Denies Violence risk - others (6 mos) Low Violence risk - self (6 mos) Low Substance Abuse History Drugs/Alcohol past 12 months 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 states she is allergic to latex with powder, it causes a rash. Past Medical History Patient HIV positive and history of hepatitis Reported Medications Emtricitabine-Tenofovir Disoproxil Fumarate (Truvada) 133-200 Mg Tab, 1 TAB PO DAILY for Mgmt Viral Infection, #30 TAB 0 Refills 04/02/17 Raltegravir (Isentress) 400 Mg Tab, 400 MG PO BID for Mgmt Viral Infection, #60 TAB 0 Refills 04/02/17 Aripiprazole (Aripiprazole) 10 Mg Tab, 10 MG PO HS, #30 TAB 0 Refills 04/02/17 Discontinued Reported Medications Aripiprazole (Abilify) 15 Mg Tab, 15 MG PO DAILY, #30 TAB 0 Refills 04/02/17 Miscellaneous (Office Medication) Misc, 1 TAB PO DAILY for Hives 02/03/17 Miscellaneous (Office Medication) Misc, 1 TAB PO DAILY for Hives 02/03/17 Miscellaneous (Office Medication) Misc, 1 TAB PO DAILY for Hives 02/03/17 Discontinued Scripts Multi-Vit/Iron-Folic Zwhr-C24-Rct C (Ferralet) 90-1-0.012-120 mg Tab, 1 CAPLET PO DAILY for 30 Days, #30 CAPLET 2 Refills Prov:Dariela Brewster 02/20/17 Vit-Iron Carbonyl ( Plus Iron 29-1 mg) 1 Tab Tab, 1 TAB PO DAILY for Nutritional Supplement, #30 TAB 0 Refills Prov:Dariela Brewster 02/20/17 Current Medications Medications (Trade) Dose Ordered Sig/Stone Route Start Time Stop Time Status Last Admin (Abilify) 10 mg HS PO 04/03/17 21:00 (Isentress) 400 mg BID PO 04/03/17 09:00 (Atarax) 50 mg Q6H PRN PO 04/02/17 23:45 (Benadryl) 50 mg HS PRN PO 04/02/17 23:45 (Benadryl Inj) 50 mg HS PRN IM 04/02/17 23:45 (Tylenol) 650 mg Q4H PRN PO 04/02/17 23:45 (Milk Of Magnesia Liq) 30 ml DAILY PRN PO 04/02/17 23:45 (Mag-Al Plus Susp Liq) 30 ml Q6H PRN PO 04/02/17 23:45 (Abilify) 5 mg DAILY PO 04/04/17 09:00 UNV Family Psych History Patient denies Social History Patient sitting up project [place] has been court ordered there Patient's Strengths (min. 2) Patient verbal labile access healthcare appears to have supportive family Physical Exam Patient seen screened in ED exam reviewed and agreed with, at the present time patient sitting is somewhat arousable state in her room with staff present as mentioned above. She is in no acute distress. He is in no respiratory distress. No complaints of abdominal pain. Patient moving all 4 extremities without difficulty no abnormal motor movements noted Vital Signs Vital Signs Date Time Temp Pulse Resp B/P (MAP) Pulse Ox O2 Delivery O2 Flow Rate FiO2 04/03/17 06:13 98.4 114 17 110/56 (74) 97 04/02/17 18:36 Room Air Lab Results Test 04/02/17 19:20 04/02/17 19:41 04/03/17 07:10 White Blood Count 7.3 TH/MM3 Red Blood Count 3.96 MIL/MM3 Hemoglobin 11.7 GM/DL Hematocrit 35.3 % Mean Corpuscular Volume 89.2 FL Mean Corpuscular Hemoglobin 29.5 PG Mean Corpuscular Hemoglobin Concent 33.0 % Red Cell Distribution Width 12.7 % Platelet Count 387 TH/MM3 Mean Platelet Volume 7.5 FL Neutrophils (%) (Auto) 69.1 % Lymphocytes (%) (Auto) 19.9 % Monocytes (%) (Auto) 7.8 % Eosinophils (%) (Auto) 2.8 % Basophils (%) (Auto) 0.4 % Neutrophils # (Auto) 5.1 TH/MM3 Lymphocytes # (Auto) 1.5 TH/MM3 Monocytes # (Auto) 0.6 TH/MM3 Eosinophils # (Auto) 0.2 TH/MM3 Basophils # (Auto) 0.0 TH/MM3 CBC Comment DIFF FINAL Differential Comment Blood Urea Nitrogen 12 MG/DL Creatinine 0.83 MG/DL Random Glucose 96 MG/DL Total Protein 8.4 GM/DL Albumin 3.5 GM/DL Calcium Level 9.1 MG/DL Alkaline Phosphatase 123 U/L Aspartate Amino Transf (AST/SGOT) 24 U/L Alanine Aminotransferase (ALT/SGPT) 34 U/L Total Bilirubin 0.3 MG/DL Sodium Level 138 MEQ/L Potassium Level 4.0 MEQ/L Chloride Level 103 MEQ/L Carbon Dioxide Level 27.9 MEQ/L Anion Gap 7 MEQ/L Estimat Glomerular Filtration Rate 81 ML/MIN Ethyl Alcohol Level LESS THAN 3 MG/DL Urine Opiates Screen NEG Urine Barbiturates Screen NEG Urine Amphetamines Screen NEG Urine Benzodiazepines Screen NEG Urine Cocaine Screen NEG Urine Cannabinoids Screen NEG Triglycerides Level 66 MG/DL Cholesterol Level 228 MG/DL LDL Cholesterol 103 MG/DL HDL Cholesterol 111.4 MG/DL Cholesterol/HDL Ratio 2.04 RATIO Mental Status Examination Appearance: Appropriate, Disheveled Consciousness: Alert Orientation: x4 Motor Activity: Normal gait Speech: Pressured, Rapid Language: Adequate Fund of Knowledge: Adequate Attention and Concentration: Easily Distracted Memory: Unremarkable (fair) Mood: Oppositional (mildly), Irritable, Manic (mildly) Affect: Other Thought Process & Associations: Circumstantial, Tangential Thought Content: Hallucinations, Delusional Hallucination Type: Auditory (denies at this time), Visual (denies at this time ) Delusion Type: Bizarre Suicidal Ideation: No Suicidal Plan: No Suicidal Intention: No Homicidal Ideation: No Homicidal Plan: No Homicidal Intention: No Insight: Poor Judgment: Poor Assessment & Plan Problem List: (1) Schizoaffective disorder, bipolar type ICD Codes: F25.0 - Schizoaffective disorder, bipolar type Assessment & Plan Estimated LOS: days patient does meet criteria for involuntary hospitalization the Bashir act I'll do first opinion request second opinion I feel she has capacity to sign for medication patient remained psychotic and delusional though denying it. Showing manic type behaviors also. She medication adjustment above Discharge Planning Return to project [facility] Request HC Surrog/Guard Advoc?: No Marin Santos MD Apr 03, 2017 14:46
[2017-04-03 16:15] LABS: HEMOGLOBIN A1a 1.1 %; HEMOGLOBIN A1b 1.4 %; HEMOGLOBIN Ao 86.4 %; HEMOGLOBIN LA1C 1.9 %; HEMOGLOBIN P3 3.5 %
[2017-04-03 17:02] VITALS: BP 113/64; PULSE 82; RESP 18; TEMP 97.7; O2SAT 100
--- NOTE | 2017-04-03 18:01 | PD.CONS ---
HPI Service [facility] Hospitalists Consult Requested By Psychiatric service Reason for Consult Medical management Primary Care Physician Arun Driver M.D. Diagnoses: History of Present Illness Written by Cadence Solorio, acting as scribe for Dr. Rios on 04/03/17 at 17: 49. This is a 32-year-old female with a past medical history significant for schizophrenia, HIV and hepatitis C who is 2 weeks and is admitted to inpatient psychiatric unit for acute psychosis. Hospitalist services were consulted for medical management of patient's HIV and hepatitis C. Patient seen and examined. Patient states she's feeling well. She reports only having "a little hepatitis". She denies any complaints at present. She reports normal vaginal delivery and is not breast-feeding. Patient states she gets her HIV medications from [facility] and is compliant. She reports that her most recent CD4 count was not detectable. She denies any auditory or visual hallucinations at the present time. She is anxious to get back to [facility]. Review of Systems Except as stated in HPI: all other systems reviewed are Neg Past Family Social History Allergies: Coded Allergies: latex (Verified Allergy, Mild, Rash/outbreak, 03/08/17) Pt. states she is allergic to latex with powder, it causes a rash. Past Medical History Two weeks HIV, medication compliant with undetectable CD4 count Hepatitis C Past Surgical History Leep procedure Reported Medications Truvada (Emtricitabine-Tenofovir Disoproxil Fumarate) 133-200 Mg Tab 1 Tab PO DAILY Isentress (Raltegravir) 400 Mg Tab 400 Mg PO BID Aripiprazole 10 Mg Tab 10 Mg PO HS Active Ordered Medications Current Medications Medications (Trade) Dose Ordered Sig/Stone Route Start Time Stop Time Status Last Admin (Abilify) 10 mg HS PO 04/03/17 21:00 (Benadryl Inj) 50 mg HS PRN IM 04/02/17 23:45 (Tylenol) 650 mg Q4H PRN PO 04/02/17 23:45 (Milk Of Magnesia Liq) 30 ml DAILY PRN PO 04/02/17 23:45 (Mag-Al Plus Susp Liq) 30 ml Q6H PRN PO 04/02/17 23:45 (Abilify) 5 mg DAILY PO 04/04/17 09:00 (Atarax) 50 mg Q6H PRN PO 04/03/17 14:30 (Isentress) 400 mg BID PO 04/03/17 21:00 (Truvada 200-300 Mg) 1 tab DAILY PO 04/04/17 09:00 (Benadryl) 50 mg HS PRN PO 04/03/17 21:00 Family History Reviewed family medical history with patient, denies any heart disease, diabetes or high blood pressure Social History Patient denies any tobacco use or alcohol use. When asked about illicit drug use, patient replies "I did what I had to do". She denies any history of IV drug use. Physical Exam Vital Signs Vital Signs Date Time Temp Pulse Resp B/P (MAP) Pulse Ox O2 Delivery O2 Flow Rate FiO2 04/03/17 17:02 97.7 82 18 113/64 (80) 100 04/03/17 06:13 98.4 114 17 110/56 (74) 97 04/02/17 23:21 97.7 94 17 124/69 (87) 98 04/02/17 23:10 04/02/17 19:14 98.3 04/02/17 18:36 100 20 151/72 (98) 98 Room Air Physical Exam GENERAL: This is a well-nourished, well-developed patient, in no apparent distress. Awake and alert. SKIN: No rashes, ecchymoses or lesions. Cool and dry. HEAD: Atraumatic. Normocephalic. No temporal or scalp tenderness. EYES: Pupils equal round and reactive. Extraocular motions intact. No scleral icterus. No injection or drainage. ENT: Nose without bleeding or purulent drainage. Throat without erythema, tonsillar hypertrophy or exudate. Uvula midline. Airway patent. NECK: Trachea midline. No lymphadenopathy. Supple, nontender, no meningeal signs. CARDIOVASCULAR: Regular rate and rhythm without murmurs, gallops, or rubs. RESPIRATORY: Clear to auscultation. Breath sounds equal bilaterally. No wheezes , rales, or rhonchi. GASTROINTESTINAL: Abdomen soft, non-tender, nondistended. No hepato-splenomegaly , or palpable masses. No guarding. MUSCULOSKELETAL: Extremities without clubbing, cyanosis, or edema. No joint tenderness, effusion, or edema noted. No calf tenderness. NEUROLOGICAL: Awake and alert. Able to move all extremities spontaneously. No focal neurologic finding appreciated. Normal speech. Laboratory Laboratory Tests Test 04/02/17 19:20 04/02/17 19:41 04/03/17 07:10 White Blood Count 7.3 Red Blood Count 3.96 Hemoglobin 11.7 Hematocrit 35.3 Mean Corpuscular Volume 89.2 Mean Corpuscular Hemoglobin 29.5 Mean Corpuscular Hemoglobin Concent 33.0 Red Cell Distribution Width 12.7 Platelet Count 387 Mean Platelet Volume 7.5 Neutrophils (%) (Auto) 69.1 Lymphocytes (%) (Auto) 19.9 Monocytes (%) (Auto) 7.8 Eosinophils (%) (Auto) 2.8 Basophils (%) (Auto) 0.4 Neutrophils # (Auto) 5.1 Lymphocytes # (Auto) 1.5 Monocytes # (Auto) 0.6 Eosinophils # (Auto) 0.2 Basophils # (Auto) 0.0 CBC Comment DIFF FINAL Differential Comment Blood Urea Nitrogen 12 Creatinine 0.83 Random Glucose 96 Total Protein 8.4 Albumin 3.5 Calcium Level 9.1 Alkaline Phosphatase 123 Aspartate Amino Transf (AST/SGOT) 24 Alanine Aminotransferase (ALT/SGPT) 34 Total Bilirubin 0.3 Sodium Level 138 Potassium Level 4.0 Chloride Level 103 Carbon Dioxide Level 27.9 Anion Gap 7 Estimat Glomerular Filtration Rate 81 Ethyl Alcohol Level LESS THAN 3 Urine Opiates Screen NEG Urine Barbiturates Screen NEG Urine Amphetamines Screen NEG Urine Benzodiazepines Screen NEG Urine Cocaine Screen NEG Urine Cannabinoids Screen NEG Hemoglobin A1c 5.2 Triglycerides Level 66 Cholesterol Level 228 LDL Cholesterol 103 HDL Cholesterol 111.4 Cholesterol/HDL Ratio 2.04 Result Diagram: 04/02/17191904/02/171919 Assessment and Plan Assessment and Plan 32-year-old female with a past medical history significant for schizophrenia, HIV and hepatitis C who is 2 weeks and is admitted to inpatient psychiatric unit for acute psychosis. Psychosis - Management per psychiatric team HIV, medication compliant with undetectable CD4 count - resume patients HIV medications - have patient resume follow up at [facility] at discharge Hepatitis C - standard precautions - LFTs stable - recommend patient follow up with GI as outpatient DVT prophylaxis - patient is ambulatory Thank you very kindly for this consultation. Patient appears stable from a medical standpoint. Will sign off for now. Please reconsult if needed. Discussed Condition With patient This note was transcribed by [email or web address] [Cadnece [email or web address].]. I, Dr. Mandy Rios personally performed the history, physical exam, and medical decision making; and confirmed the accuracy of the information in the transcribed note. Authenticated by Dr. Mandy Rios on 04/03/17 at 17:57 Cadence Solorio Apr 03, 2017 18:01 Mandy Rios MD Apr 06, 2017 20:25
[2017-04-03] MEDS: RALTEGRAVIR 400 MG TAB PO SCH (20:48)
[2017-04-03] MEDS: ARIPiprazole 10 MG TAB PO SCH (20:48)
[2017-04-04 05:45] VITALS: BP 131/60; PULSE 92; RESP 16; TEMP 97.3; O2SAT 98
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
--- NOTE | 2017-04-04 08:42 | PD.TTN ---
Patient Problems 1. Discharge planning 2. Medication compliance 3. Knowledge deficit 4. Lack of coping skills Progress Toward Goals Provider Present: Dr. Cony Santos Provider Input: Dr. Santos's treatment team met to discuss patient's treatment plan, discharge and medication. Patient at this time is new and will be accessed for treatment. Nurse(s) Input: Patient's nurse Peter reports patient is anxious, intrusive, attention seeking, hyper agitated, pacing Psychiatric Counselors Present[facility] Rad[facility] Input: Patient is new to this counselor. Patient will be accessed at that time goals and treatment plan with be determined. Group Spec/RT/OT/BLISS Present: IZAIAH Clark Group Spec/RT/OT/BLISS Input: Patient is new and will encourage participation. Radha Jane [facility] Apr 04, 2017 08:42
[2017-04-04] MEDS: EMTRICITABINE/TENOFOVIR 200 MG/300 MG TAB PO SCH (08:52)
[2017-04-04] MEDS: ARIPiprazole 5 MG TAB PO SCH (08:52)
[2017-04-04] MEDS: RALTEGRAVIR 400 MG TAB PO SCH ×2 (08:52→20:47)
--- NOTE | 2017-04-04 12:30 | HHI.PYPN ---
Subjective Chief Complaint: increase auditory or visual hallucinations of threatening nature Remarks Patient seen in [place] with floor staff. Continues calm cooperative though somewhat manipulative. She has been compliant with her medications. She does denies suicidality homicidality at this time. She does deny voices or visions. For now continue treatment need further observation to determine their consistency and constancy of her improvements Review of Systems Except as stated in HPI: all other systems reviewed are Neg Mental Status Examination Appearance: Appropriate, Disheveled Consciousness: Alert Orientation: x4 Motor Activity: Normal gait Speech: Pressured, Rapid Language: Adequate Fund of Knowledge: Adequate Attention and Concentration: Easily Distracted Memory: Unremarkable (fair) Mood: Oppositional (mildly), Irritable, Manic (mildly) Affect: Other Thought Process & Associations: Circumstantial, Tangential Thought Content: Hallucinations, Delusional Hallucination Type: Auditory (denies at this time), Visual (denies at this time ) Delusion Type: Bizarre Suicidal Ideation: No Suicidal Plan: No Suicidal Intention: No Homicidal Ideation: No Homicidal Plan: No Homicidal Intention: No Insight: Poor Judgment: Poor Results Vitals/IOs Vital Signs Date Time Temp Pulse Resp B/P (MAP) Pulse Ox O2 Delivery O2 Flow Rate FiO2 04/04/17 05:45 97.3 92 16 131/60 (83) 98 04/02/17 18:36 Room Air Assessment & Plan Problem List: (1) Schizoaffective disorder, bipolar type ICD Codes: F25.0 - Schizoaffective disorder, bipolar type Assessment & Plan Estimated LOS: days patient psychosis appears to be softening, compliant medications, for now continue treatment Justification for Cont. Inpt. With this time patient will decompensate the placed in a lower level of care Discharge Planning Return to [facility] Request HC Surrog/Guard Advoc?: No Marin Santos MD Apr 04, 2017 12:30
[2017-04-04 16:47] VITALS: BP 143/62; PULSE 92; RESP 16; TEMP 98.7; O2SAT 99
[2017-04-04] MEDS: ARIPiprazole 10 MG TAB PO SCH (20:47)
[2017-04-05 04:00] VITALS: BP 108/68; PULSE 98; RESP 18; TEMP 98; O2SAT 97
[2017-04-05] MEDS: RALTEGRAVIR 400 MG TAB PO SCH (09:53)
[2017-04-05] MEDS: EMTRICITABINE/TENOFOVIR 200 MG/300 MG TAB PO SCH (09:53)
[2017-04-05] MEDS: ARIPiprazole 5 MG TAB PO SCH (09:53)
[2017-04-05] MEDS ORDERED: RALT400 PO (12:22)
[2017-04-05] MEDS ORDERED: ARIP1TAB12 PO (12:22)
[2017-04-05] MEDS ORDERED: EMTR1TAB6 PO (12:22)
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
== END 2017-04-05 14:20 | disposition short-term general hospital (02) | DRG 776 ==
LOC: NEPJ 18:08 → NEDA 22:13 → H260 23:15
PROVIDERS: ADMIT Psychiatry & Neurology Psychiatry; ATTEND Psychiatry & Neurology Psychiatry
DX: O99.345 Other mental disorders complicating the puerperium (principal); F25.0 Schizoaffective disorder, bipolar type; B19.20 Unspecified viral hepatitis C without hepatic coma; Z21 Asymptomatic human immunodeficiency virus [HIV] infection status
CPT/HCPCS: 80053; 80061; 80307; 83036; 84703; 85025; 99285